=== PATIENT | female | born 1985 | race Caucasian/White ===

== ENCOUNTER 2016-07-31 06:50 | Day surgery (SDC) | payer OTHER ==
[~2016-07-31] VITALS: Ht 165.1 cm; Wt 109.0 kg
[2016-07-31] MEDS ORDERED: CEFAZOLIN 2 GM/50 ML (PMX) 50 ML IVPB ONE (08:00)
[2016-07-31] MEDS ORDERED: SOD CHLORIDE 0.9% 1,000 ML IV ONE (08:00)
[2016-07-31 08:09] VITALS: Ht 165.1 cm; Wt 109.0 kg
[2016-07-31 08:15] VITALS: BP 125/67; PULSE 80; RESP 20
[2016-07-31 08:15] LABS: ADD SCAN DIFF NO
[2016-07-31 08:18] LABS: BASOPHIL # 0.1 10^3/ul (0.0-0.1); BASOPHILS % 0.4 % (0.0-2.0); EOSINOPHILS # 0.5 10^3/ul (0.0-0.5); EOSINOPHILS % 4.4 % (0.0-7.0); HEMATOCRIT 40.2 % (37.0-47.0); HEMOGLOBIN 13.2 g/dl (12.0-16.0); LYMPHOCYTES # 2.8 10^3/ul (0.8-2.9); LYMPHOCYTES % 24.1 % (15.0-51.0); MEAN CORPUSCULAR HEMOGLOBIN 27.6 pg (29.0-33.0); MEAN CORPUSCULAR HGB CONC 32.8 g/dl (32.0-37.0); MEAN CORPUSCULAR VOLUME 83.9 fl (82.0-101.0); MEAN PLATELET VOLUME 8.7 fl (7.4-10.4); MONOCYTE # 0.9 10^3/ul (0.3-0.9); MONOCYTES % 7.8 % (0.0-11.0); NEUTROPHIL # 7.2 10^3/ul (1.6-7.5); NEUTROPHILS % 62.7 % (39.0-77.0); PLATELET COUNT 458 10^3/UL (140-415); RED BLOOD COUNT 4.79 10^6/ul (4.20-5.40); RED CELL DISTRIBUTION WIDTH 14.6 % (11.5-14.5); WHITE BLOOD COUNT 11.4 10^3/ul (4.8-10.8)
[2016-07-31 08:41] LABS: PROTIME 13.2 Sec (12.2-14.2)
[2016-07-31 08:42] LABS: PARTIAL THROMBOPLASTIN TIME 27.5 Sec (25.0-35.0)
[2016-07-31 08:46] LABS: CALCIUM 9.4 mg/dl (8.4-10.2); CREATININE 0.67 mg/dl (0.44-1.00); POTASSIUM 4.8 mmol/L (3.5-5.1)
== END 2016-07-31 09:00 | disposition home or self-care (01) ==
LOC: SDS 06:50
PROVIDERS: ATTEND Surgery Surgical Oncology
DX: L98.8 Other specified disorders of the skin and subcutaneous tissue (principal); Z53.9 Procedure and treatment not carried out, unspecified reason
CPT/HCPCS: 80048; 85025; 85610; 85730

== ENCOUNTER 2016-10-16 10:29 | Day surgery (SDC) | payer OTHER ==
[2016-10-16] VITALS (10 sets, daily range): BP systolic 116–142; BP diastolic 63–77; PULSE 73–82; RESP 15–20; Ht 165.1 cm; Wt 109.6 kg
[~2016-10-16] VITALS: Ht 165.1 cm; Wt 109.6 kg
[~2016-10-16 10:29] MED LIST: CEFAZOLIN 1 GM INJ ONE; CEFAZOLIN 2 GM/50 ML (PMX) 50 ML IVPB SCH; LIDOCAINE 2% (SDV) 5 ML INJ ONE; SEVOFLURANE 15 MIN ONE; SOD CHLORIDE 0.9% 1,000 ML IV SCH
[2016-10-16] MEDS ORDERED: MIDAZOLAM 1 MG/ML 2 ML INJ IV ONE (12:00)
[2016-10-16] MEDS ORDERED: LIDOCAINE 2%/EPI 30 ML INJ ONE (12:26)
[2016-10-16] MEDS ORDERED: LIDOCAINE 2%/EPI (MDV) 20ML INJ INJ ONE (12:28)
[2016-10-16] MEDS ORDERED: PROPOFOL 60 ML ONE (12:46)
[2016-10-16] MEDS ORDERED: FENTAnyl 50 MCG/ML VIAL ONE ×2 (12:48→13:32)
[2016-10-16] MEDS ORDERED: MIDAZOLAM 1 MG/ML 2 ML INJ ONE (12:48)
[2016-10-16] MEDS ORDERED: PROPOFOL 20 ML ONE (13:31)
[2016-10-16] MEDS ORDERED: DEXAMETHASONE 4 MG/ML 1 ML INJ ONE (13:35)
[2016-10-16] MEDS ORDERED: ONDANSETRON 4 MG INJ ONE ×2 (13:55→14:12)
[2016-10-16] MEDS: FENTAnyl 50 MCG/ML VIAL IV PRN ×2 (14:22→15:08)
[2016-10-16] MEDS ORDERED: MEPERIDINE 25 MG INJ IV PRN (14:30)
[2016-10-16] MEDS ORDERED: EPHEDrine SULFATE 50 MG/5 ML SYG IV PRN (14:30)
[2016-10-16] MEDS ORDERED: LABETALOL HCL 20MG INJ IV PRN (14:30)
[2016-10-16] MEDS ORDERED: FENTAnyl 50 MCG/ML VIAL IV PRN ×2 (14:30)
[2016-10-16] MEDS ORDERED: hydrALAzine 20 MG INJ IV PRN (14:30)
[2016-10-16] MEDS ORDERED: METOCLOPRAMIDE 10 MG INJ IV PRN (14:30)
[2016-10-16] MEDS ORDERED: ONDANSETRON 4 MG INJ IV PRN (14:30)
[2016-10-16] MEDS ORDERED: DIPHENHYDRAMINE 50 MG INJ IV PRN (14:30)
--- NOTE | 2016-10-16 14:54 | OPR ---
DATE OF OPERATION: 10/16/2016 PREOPERATIVE DIAGNOSES: 1. Posterior thoracic skin lesion. 2. Bilateral anterior cervical skin tags. 3. Left posterior thigh mass. POSTOPERATIVE DIAGNOSES: 1. Posterior thoracic skin lesion. 2. Bilateral anterior cervical skin tags. 3. Left posterior thigh mass. OPERATIONS PERFORMED: 1. Excision of posterior thoracic skin lesion. 2. Excision of anterior cervical skin tags. 3. Excision of left posterior thigh mass. ANESTHESIA: General. ANESTHESIOLOGIST: Dr. Page SURGEON: Sergio Prajapati MD EVENT MARKETING COORDINATOR: Dr. Hay INDICATIONS FOR PROCEDURE: The patient is a 31-year-old female who presented with a posterior thora cic skin lesion, anterior cervical skin tags, and left posterior thigh mass. She requested removal of 3. She consented and was scheduled for surgery. DESCRIPTION OF PROCEDURE: The patient was brought to the operating theater, placed under general an esthesia. She was then put in the lateral position with the left side up. The posterior thoracic a ania was prepped and draped in the usual sterile fashion. The skin lesion which was approximately 2 cm in diameter was then excised in full thickness elliptical fashion and sent for permanent patholog ic analysis. Minimal bleeding was controlled with cautery. The area was infiltrated with 0.5% Dipak roberto local anesthetic with epinephrine, and the skin was reapproximated with 2-0 nylon sutures in ve rtical mattress fashion. Attention was then directed to the left thigh mass which had also been prepped and draped into the f ield. It was palpated. An approximately 2 to 3 cm incision was made directly over it. Subcutaneou s tissue was dissected with combination of sharp dissection and cautery. In the subcutaneous space, a well-circumscribed lesion consistent with probable lipoma was identified. It was meticulously di ssected from the surrounding tissue, removed and sent for pathologic analysis. Minimal bleeding was controlled with cautery. The area was infiltrated with 0.5% Marcaine local anesthetic, and the ski n was then reapproximated with multiple 2-0 nylon sutures in vertical mattress fashion. At this poi nt, the sterile dressings were applied to both wounds. The patient was repositioned into the supine position, and the anterior cervical region was prepped and draped in sterile fashion bilaterally. Attention was directed to the left side. Four small skin tags were then removed using needlepoint B ovie. They were sent for permanent pathologic analysis, and on the right side another 4 skin tags w ere also removed with needlepoint Bovie, and they were sent separately as right anterior cervical sk in tags. Sterile dressings were then applied to all wounds. The patient tolerated procedure well. Total blood loss was 20 mL. There were no complications. The patient was transported in stable co ndition to the recovery room. Dictated By: SERGIO BUTT/MOISES Conf#: [id number] DID#: [id number]
--- NOTE | 2016-10-16 15:35 | OPPN ---
Date/Time of Note Date/Time of Note DATE: 10/16/16 TIME: 15:35 Post-Anesthesia Notes Post-Anesthesia Note Last documented vital signs Vital Signs Date Time Temp Pulse Resp B/P Pulse Ox O2 Delivery O2 Flow Rate FiO2 10/16/16 14:50 74 15 128/73 97 Room Air 10/16/16 14:39 97.6 Activity: WNL Respiratory function: WNL Cardiovascular function: WNL Mental status: Baseline Pain reasonably controlled: Yes Hydration appropriate: Yes Nausea/Vomiting absent: Yes BREONNA JACOBS October 16, 2016 15:35
[2016-10-16] MEDS ORDERED: HYDROCODONE/APAP (10/325) TAB PO ONE (16:00)
== END 2016-10-16 16:00 | disposition home or self-care (01) ==
LOC: SDS 10:29
PROVIDERS: ATTEND Surgery Surgical Oncology
DX: D22.5 Melanocytic nevi of trunk (principal); D17.24 Benign lipomatous neoplasm of skin and subcutaneous tissue of left leg; R22.1 Localized swelling, mass and lump, neck
CPT/HCPCS: 11403; 11404; 11422; 88304; 88305; J0690; J1100; J2250; J2405; J3010